=== PATIENT | female | born 1970 | race Caucasian/White ===

== ENCOUNTER 2022-01-25 06:36 | Day surgery (SDC) | payer OTHER ==
[~2022-01-25] VITALS: Ht 157.5 cm; Wt 106.6 kg
[2022-01-25] MEDS ORDERED: MIDAZOLAM 5 MG/5 ML VIAL ONE (07:31)
[2022-01-25] MEDS ORDERED: diphenhydrAMINE 50 MG/ML VIAL ONE (07:31)
[2022-01-25] MEDS ORDERED: fentaNYL citrate 0.05 MG/ML VIAL ONE (07:31)
[2022-01-25] MEDS ORDERED: LIDOCAINE 2% 100 MG/5 ML UJET TP ONE (07:32)
[2022-01-25] MEDS ORDERED: fentaNYL citrate 0.05 MG/ML VIAL IVP ONE (13:45)
[2022-01-25] MEDS ORDERED: MIDAZOLAM 2 MG/2 ML VIAL IVP ONE (13:45)
== END 2022-01-25 08:48 | disposition home or self-care (01) ==
LOC: MDS 06:36 → MMU 06:37 → MDS 08:48
PROVIDERS: ATTEND Internal Medicine Gastroenterology
DX: Z12.11 Encounter for screening for malignant neoplasm of colon (principal); K63.5 Polyp of colon; K57.30 Diverticulosis of large intestine without perforation or abscess without bleeding; I10 Essential (primary) hypertension; E11.9 Type 2 diabetes mellitus without complications; E78.5 Hyperlipidemia, unspecified; Z86.73 Personal history of transient ischemic attack (TIA), and cerebral infarction without residual deficits; Z79.84 Long term (current) use of oral hypoglycemic drugs; Z79.01 Long term (current) use of anticoagulants; Z79.899 Other long term (current) drug therapy; Z20.822 Contact with and (suspected) exposure to COVID-19
CPT/HCPCS: 45380; 45385; 87426; J2250; J3010; J1200